=== PATIENT | female | born 1930 | race Caucasian/White ===

== ENCOUNTER 2018-05-17 14:04 | Emergency (ER) | payer MEDICARE, OTHER ==
[2018-05-17] MEDS: LIDOCAINE 1%/EPI (MDV) 50 ML INJ INJ (15:27)
[2018-05-17] MEDS: DIPHTH/TET/ACEL PERTUSS (ADULT) 0.5 ML VIAL IM* (17:49)
== END 2018-05-17 17:51 | disposition home or self-care (01) ==
LOC: E/R 14:04
DX: S02.2XXA Fracture of nasal bones, initial encounter for closed fracture (principal); S01.81XA Laceration without foreign body of other part of head, initial encounter; I10 Essential (primary) hypertension; W01.198A Fall on same level from slipping, tripping and stumbling with subsequent striking against other object, initial encounter; Y92.89 Other specified places as the place of occurrence of the external cause; Z96.651 Presence of right artificial knee joint
CPT/HCPCS: 70486; 99284-25

== ENCOUNTER 2018-06-06 13:20 | Inpatient (IN) | payer MEDICARE, OTHER ==
[2018-06-06 17:31] LABS: ADD MAN DIFF? NO
[2018-06-06 17:38] LABS: BASOPHIL # 0.1 10^3/ul (0.0-0.1); BASOPHILS % 1.3 % (0.0-2.0); EOSINOPHILS # 0.2 10^3/ul (0.0-0.5); EOSINOPHILS % 3.8 % (0.0-7.0); HEMATOCRIT 34.3 % (37.0-47.0); HEMOGLOBIN 10.1 g/dl (12.0-16.0); LYMPHOCYTES # 1.3 10^3/ul (0.8-2.9); LYMPHOCYTES % 23.4 % (15.0-51.0); MEAN CORPUSCULAR HEMOGLOBIN 29.2 pg (29.0-33.0); MEAN CORPUSCULAR HGB CONC 29.4 g/dl (32.0-37.0); MEAN CORPUSCULAR VOLUME 99.1 fl (82.0-101.0); MEAN PLATELET VOLUME 10.8 fl (7.4-10.4); MONOCYTE # 0.7 10^3/ul (0.3-0.9); MONOCYTES % 12.1 % (0.0-11.0); NEUTROPHIL # 3.3 10^3/ul (1.6-7.5); PLATELET COUNT 223 10^3/UL (140-415); RED BLOOD COUNT 3.46 10^6/ul (4.20-5.40)
[2018-06-06 17:38] LABS: WHITE BLOOD COUNT 5.6 10^3/ul (4.8-10.8)
[2018-06-06] MEDS: IBUPROFEN 600 MG TAB PO (17:39)
[2018-06-06 17:56] LABS: ANION GAP 13 (8-16)
[2018-06-06 17:59] LABS: BLOOD UREA NITROGEN 31 mg/dl (7-20); CALCIUM 9.6 mg/dl (8.4-10.2); CARBON DIOXIDE 23 mmol/L (21-31); CHLORIDE 112 mmol/L (97-110); CREATININE 1.17 mg/dl (0.44-1.00); GLUCOSE 90 mg/dl (70-220); POTASSIUM 5.1 mmol/L (3.5-5.1); SODIUM 143 mmol/L (135-144)
[2018-06-06] MEDS: morphine 10 MG INJ IM (19:06)
[2018-06-06] MEDS: LORAZEPAM 0.5 MG TAB PO (20:59)
[2018-06-06] MEDS: ONDANSETRON 4 MG INJ IV (20:59)
[2018-06-06] MEDS: morphine 4 MG/ML VIAL IV ×2 (20:59→21:17)
[2018-06-06] MEDS ORDERED: ACETAMINOPHEN 325 MG TAB PO (21:00)
[2018-06-06] MEDS ORDERED: morphine 2 MG INJ IV (23:00)
[2018-06-07] MEDS: PANTOPRAZOLE (EC) 40 MG TAB PO (08:12)
[2018-06-07] MEDS: FOLIC ACID 1 MG TAB PO (08:12)
[2018-06-07] MEDS: METOPROLOL 50 MG TAB PO ×2 (08:13→21:31)
[2018-06-07] MEDS: GABAPENTIN 100 MG CAP PO ×4 (08:13→21:00)
[2018-06-07] MEDS: ENALAPRIL 10 MG TAB PO (08:13)
[2018-06-07 10:08] LABS: ADD MAN DIFF? NO
[2018-06-07 10:12] LABS: BASOPHILS % 0.6 % (0.0-2.0); EOSINOPHILS # 0.1 10^3/ul (0.0-0.5); HEMATOCRIT 32.5 % (37.0-47.0); HEMOGLOBIN 9.5 g/dl (12.0-16.0); LYMPHOCYTES # 0.6 10^3/ul (0.8-2.9); MEAN CORPUSCULAR HEMOGLOBIN 29.3 pg (29.0-33.0); MEAN CORPUSCULAR HGB CONC 29.2 g/dl (32.0-37.0); MEAN CORPUSCULAR VOLUME 100.3 fl (82.0-101.0); MEAN PLATELET VOLUME 10.8 fl (7.4-10.4); MONOCYTE # 0.7 10^3/ul (0.3-0.9); MONOCYTES % 10.3 % (0.0-11.0); NEUTROPHIL # 5.5 10^3/ul (1.6-7.5); NEUTROPHILS % 78.7 % (39.0-77.0); PLATELET COUNT 204 10^3/UL (140-415); RED BLOOD COUNT 3.24 10^6/ul (4.20-5.40); RED CELL DISTRIBUTION WIDTH 15.8 % (11.5-14.5)
[2018-06-07 10:35] LABS: INR 1.01; PROTIME 13.4 Sec (11.9-14.9)
[2018-06-07 10:39] LABS: IRON 25 ug/dl (35-150)
[2018-06-07 10:42] LABS: ALANINE AMINOTRANSFERASE 20 IU/L (13-69); ALBUMIN 3.7 g/dl (3.3-4.9); ALBUMIN/GLOBULIN RATIO 1.27; ALKALINE PHOSPHATASE 37 IU/L (42-121); ANION GAP 10 (8-16); ASPARTATE AMINO TRANSFERASE 18 IU/L (15-46); BLOOD UREA NITROGEN 33 mg/dl (7-20); CALCIUM 9.4 mg/dl (8.4-10.2); CARBON DIOXIDE 27 mmol/L (21-31); CHLORIDE 113 mmol/L (97-110); CREATININE 1.18 mg/dl (0.44-1.00); GLUCOSE 124 mg/dl (70-220); MAGNESIUM 1.8 mg/dl (1.7-2.5); SODIUM 145 mmol/L (135-144); TOTAL PROTEIN 6.6 g/dl (6.1-8.1)
[2018-06-07 10:53] LABS: % IRON SATURATION 8 % SAT (22-52); TOTAL IRON BINDING CAPACITY 330 ug/dl (241-421)
[2018-06-07] MEDS: ACETAMINOPHEN 500 MG TAB PO (15:13)
[2018-06-07] MEDS: SOD FERRIC GLUC COMPLX 125 MG in SOD CHLORIDE 0.9% 100 ML IVPB (17:26)
[2018-06-07] MEDS: HYDROCODONE/APAP (7.5/325) TAB PO ×2 (17:47→22:44)
[2018-06-07] MEDS ORDERED: morphine LIQ (10 MG/5 ML) CUP PO (23:00)
[2018-06-08] MEDS: PANTOPRAZOLE (EC) 40 MG TAB PO (08:25)
[2018-06-08] MEDS: FOLIC ACID 1 MG TAB PO (08:25)
[2018-06-08] MEDS: HYDROCODONE/APAP (7.5/325) TAB PO ×3 (08:25→23:38)
[2018-06-08] MEDS: METOPROLOL 50 MG TAB PO ×2 (08:26→21:00)
[2018-06-08] MEDS: GABAPENTIN 100 MG CAP PO ×3 (08:26→21:00)
[2018-06-08] MEDS: ENALAPRIL 10 MG TAB PO (08:26)
[2018-06-08 11:51] LABS: ADD MAN DIFF? NO
[2018-06-08 11:53] LABS: BASOPHILS % 0.5 % (0.0-2.0); EOSINOPHILS # 0.2 10^3/ul (0.0-0.5); EOSINOPHILS % 2.9 % (0.0-7.0); HEMATOCRIT 33.1 % (37.0-47.0); HEMOGLOBIN 9.9 g/dl (12.0-16.0); LYMPHOCYTES # 0.6 10^3/ul (0.8-2.9); LYMPHOCYTES % 7.9 % (15.0-51.0); MEAN CORPUSCULAR HEMOGLOBIN 29.8 pg (29.0-33.0); MEAN CORPUSCULAR HGB CONC 29.9 g/dl (32.0-37.0); MEAN CORPUSCULAR VOLUME 99.7 fl (82.0-101.0); MEAN PLATELET VOLUME 11.4 fl (7.4-10.4); MONOCYTE # 0.7 10^3/ul (0.3-0.9); MONOCYTES % 8.8 % (0.0-11.0); NEUTROPHILS % 79.5 % (39.0-77.0); PLATELET COUNT 198 10^3/UL (140-415); RED BLOOD COUNT 3.32 10^6/ul (4.20-5.40); RED CELL DISTRIBUTION WIDTH 15.9 % (11.5-14.5)
[2018-06-08 11:53] LABS: WHITE BLOOD COUNT 7.6 10^3/ul (4.8-10.8)
[2018-06-08 15:38] LABS: IMMEDIATE SPIN CROSSMATCH 1 2
[2018-06-08 19:15] LABS: RETICULOCYTE COUNT # 0.094 X10^6 (0.020-0.110); RETICULOCYTE COUNT % 2.6 % (0.5-1.5)
[2018-06-08 19:15] LABS: RETICULOCYTE RBC 3.68
[2018-06-08 19:40] LABS: IRON 54 ug/dl (35-150)
[2018-06-08 19:42] LABS: URIC ACID 6.8 mg/dl (3.1-7.9)
[2018-06-08 19:42] LABS: LACTATE DEHYDROGENASE 478 IU/L (313-618)
[2018-06-08 19:51] LABS: % IRON SATURATION 18 % SAT (22-52); TOTAL IRON BINDING CAPACITY 301 ug/dl (241-421)
[2018-06-08 20:36] LABS: ERYTHROCYTE SEDIMENTATION RATE 11 mm/Hr (0-30)
[2018-06-08 20:49] LABS: FOLATE > 20.0 ng/ml (2.8-20.0)
[2018-06-08] MEDS: SOD FERRIC GLUC COMPLX 125 MG in SOD CHLORIDE 0.9% 100 ML IVPB (21:26)
[2018-06-09 07:14] LABS: ADD MAN DIFF? NO; BASOPHIL # 0.1 10^3/ul (0.0-0.1); BASOPHILS % 0.7 % (0.0-2.0); EOSINOPHILS # 0.2 10^3/ul (0.0-0.5); EOSINOPHILS % 3.2 % (0.0-7.0); HEMATOCRIT 35.7 % (37.0-47.0); HEMOGLOBIN 11.1 g/dl (12.0-16.0); LYMPHOCYTES # 0.9 10^3/ul (0.8-2.9); LYMPHOCYTES % 12.4 % (15.0-51.0); MEAN CORPUSCULAR HEMOGLOBIN 30.3 pg (29.0-33.0); MEAN CORPUSCULAR HGB CONC 31.1 g/dl (32.0-37.0); MEAN CORPUSCULAR VOLUME 97.5 fl (82.0-101.0); MEAN PLATELET VOLUME 11.9 fl (7.4-10.4); MONOCYTES % 14.2 % (0.0-11.0); NEUTROPHIL # 4.7 10^3/ul (1.6-7.5); NEUTROPHILS % 69.1 % (39.0-77.0); PLATELET COUNT 177 10^3/UL (140-415); RED BLOOD COUNT 3.66 10^6/ul (4.20-5.40); RED CELL DISTRIBUTION WIDTH 16.3 % (11.5-14.5)
[2018-06-09 07:14] LABS: WHITE BLOOD COUNT 6.9 10^3/ul (4.8-10.8)
[2018-06-09] MEDS: PANTOPRAZOLE (EC) 40 MG TAB PO (08:00)
[2018-06-09] MEDS: ENALAPRIL 10 MG TAB PO (09:00)
[2018-06-09] MEDS: FOLIC ACID 1 MG TAB PO (09:00)
[2018-06-09] MEDS: GABAPENTIN 100 MG CAP PO ×3 (09:00→21:15)
[2018-06-09] MEDS: METOPROLOL 50 MG TAB PO ×2 (09:00→21:00)
[2018-06-09] MEDS ORDERED: BACITRACIN 50000 UNITS INJ (12:41)
[2018-06-09] MEDS ORDERED: MIDAZOLAM 1 MG/ML 2 ML INJ (14:17)
[2018-06-09] MEDS ORDERED: morphine 2 MG INJ IV (14:30)
[2018-06-09] MEDS ORDERED: PHENYLephrine (100 MCG/ML) 5ML SYG (14:32)
[2018-06-09] MEDS: POLYMYXIN/BACITRACIN 1L IRRIG (15:06)
[2018-06-09] MEDS ORDERED: CEFAZOLIN 1 GM/50 ML (PMX) 50 ML IVPB (16:00)
[2018-06-09] MEDS ORDERED: PHENYLephrine 10 MG INJ (16:14)
[2018-06-09] MEDS ORDERED: LIDOCAINE 2% (SDV) 5 ML INJ (16:24)
[2018-06-09] MEDS ORDERED: ROCURONIUM 50 MG INJ (16:24)
[2018-06-09] MEDS ORDERED: ETOMIDATE 20 MG INJ (16:24)
[2018-06-09] MEDS ORDERED: NEOSTIGMINE 3 MG/3 ML SYRINGE (16:24)
[2018-06-09] MEDS ORDERED: ONDANSETRON 4 MG INJ (16:24)
[2018-06-09] MEDS ORDERED: GLYCOPYRROLATE 0.4 MG INJ (16:24)
[2018-06-09] MEDS ORDERED: CEFAZOLIN 1 GM INJ (16:32)
[2018-06-09] MEDS ORDERED: MEPERIDINE 25 MG INJ (16:43)
[2018-06-09] MEDS ORDERED: HYDROmorphONE 1 MG/5 ML IV SYRINGE IV ×2 (16:45→17:00)
[2018-06-09] MEDS: HYDROmorphONE 1 MG/5 ML IV SYRINGE IV ×2 (16:53→17:04)
[2018-06-09] MEDS ORDERED: FENTAnyl 50 MCG/ML VIAL IV (17:00)
[2018-06-09] MEDS ORDERED: DIPHENHYDRAMINE 50 MG INJ IV (17:00)
[2018-06-09] MEDS: SOD FERRIC GLUC COMPLX 125 MG in SOD CHLORIDE 0.9% 100 ML IVPB ×2 (17:00→17:53)
[2018-06-09] MEDS ORDERED: METOCLOPRAMIDE 10 MG INJ IV (17:00)
[2018-06-09] MEDS ORDERED: ONDANSETRON 4 MG INJ IV (17:00)
[2018-06-09] MEDS: MEPERIDINE 25 MG INJ IV (17:04)
[2018-06-09 17:08] LABS: ADD MAN DIFF? NO
[2018-06-09 17:10] LABS: WHITE BLOOD COUNT 14.5 10^3/ul (4.8-10.8)
[2018-06-09 17:10] LABS: ABNORMAL IP MESSAGE 1; BASOPHIL # 0.1 10^3/ul (0.0-0.1); BASOPHILS % 0.7 % (0.0-2.0); EOSINOPHILS # 0.2 10^3/ul (0.0-0.5); EOSINOPHILS % 1.3 % (0.0-7.0); HEMATOCRIT 41.4 % (37.0-47.0); HEMOGLOBIN 12.6 g/dl (12.0-16.0); LYMPHOCYTES # 1.6 10^3/ul (0.8-2.9); MEAN CORPUSCULAR HEMOGLOBIN 29.4 pg (29.0-33.0); MEAN CORPUSCULAR HGB CONC 30.4 g/dl (32.0-37.0); MEAN CORPUSCULAR VOLUME 96.7 fl (82.0-101.0); MEAN PLATELET VOLUME 11.4 fl (7.4-10.4); MONOCYTE # 1.7 10^3/ul (0.3-0.9); MONOCYTES % 11.4 % (0.0-11.0); NEUTROPHIL # 10.9 10^3/ul (1.6-7.5); NEUTROPHILS % 74.8 % (39.0-77.0); PLATELET COUNT 199 10^3/UL (140-415); RED BLOOD COUNT 4.28 10^6/ul (4.20-5.40); RED CELL DISTRIBUTION WIDTH 16.3 % (11.5-14.5)
[2018-06-09 17:16] LABS: POSITIVE DIFF @See below
[2018-06-09] MEDS: SOD CHLORIDE 0.9% 1,000 ML IV (17:52)
[2018-06-09] MEDS: HYDROCODONE/APAP (7.5/325) TAB PO (21:15)
[2018-06-10] MEDS: SOD CHLORIDE 0.9% 500 ML IV ×2 (02:28→04:02)
[2018-06-10] MEDS: SOD CHLORIDE 0.9% 1,000 ML IV ×4 (02:32→11:42)
[2018-06-10] MEDS: CEFAZOLIN 1 GM/50 ML (PMX) 50 ML IVPB ×2 (02:42→15:59)
[2018-06-10 05:55] LABS: ADD MAN DIFF? NO
[2018-06-10 06:06] LABS: WHITE BLOOD COUNT 8.8 10^3/ul (4.8-10.8)
[2018-06-10 06:06] LABS: BASOPHILS % 0.3 % (0.0-2.0); EOSINOPHILS % 0.2 % (0.0-7.0); HEMATOCRIT 32.2 % (37.0-47.0); HEMOGLOBIN 9.7 g/dl (12.0-16.0); LYMPHOCYTES # 0.7 10^3/ul (0.8-2.9); LYMPHOCYTES % 7.5 % (15.0-51.0); MEAN CORPUSCULAR HEMOGLOBIN 29.8 pg (29.0-33.0); MEAN CORPUSCULAR HGB CONC 30.1 g/dl (32.0-37.0); MEAN CORPUSCULAR VOLUME 99.1 fl (82.0-101.0); MEAN PLATELET VOLUME 11.7 fl (7.4-10.4); MONOCYTE # 1.2 10^3/ul (0.3-0.9); MONOCYTES % 14.1 % (0.0-11.0); NEUTROPHIL # 6.8 10^3/ul (1.6-7.5); NEUTROPHILS % 77.6 % (39.0-77.0); PLATELET COUNT 154 10^3/UL (140-415); RED BLOOD COUNT 3.25 10^6/ul (4.20-5.40)
[2018-06-10 06:31] LABS: ANION GAP 11 (8-16); BLOOD UREA NITROGEN 17 mg/dl (7-20); CALCIUM 7.9 mg/dl (8.4-10.2); CARBON DIOXIDE 27 mmol/L (21-31); CHLORIDE 109 mmol/L (97-110); CREATININE 1.13 mg/dl (0.44-1.00); GLUCOSE 114 mg/dl (70-220); SODIUM 142 mmol/L (135-144)
[2018-06-10] MEDS: GABAPENTIN 100 MG CAP PO ×4 (09:00→20:31)
[2018-06-10] MEDS ORDERED: ENOXAPARIN 40 MG/0.4 ML SYG SC (09:00)
[2018-06-10] MEDS: HYDROCODONE/APAP (5/325) TAB PO (09:10)
[2018-06-10] MEDS: METOPROLOL 25 MG TAB PO ×2 (09:18→20:28)
[2018-06-10] MEDS: FOLIC ACID 1 MG TAB PO (09:20)
[2018-06-10] MEDS: PANTOPRAZOLE (EC) 40 MG TAB PO (09:20)
[2018-06-10] MEDS: ENOXAPARIN 30 MG/0.3 ML SYG SC (09:24)
[2018-06-10 18:37] LABS: ADD MAN DIFF? NO
[2018-06-10 18:39] LABS: WHITE BLOOD COUNT 9.7 10^3/ul (4.8-10.8)
[2018-06-10 18:39] LABS: BASOPHILS % 0.3 % (0.0-2.0); EOSINOPHILS % 0.4 % (0.0-7.0); HEMATOCRIT 29.7 % (37.0-47.0); LYMPHOCYTES # 0.6 10^3/ul (0.8-2.9); LYMPHOCYTES % 6.2 % (15.0-51.0); MEAN CORPUSCULAR HEMOGLOBIN 29.8 pg (29.0-33.0); MEAN CORPUSCULAR HGB CONC 30.3 g/dl (32.0-37.0); MEAN CORPUSCULAR VOLUME 98.3 fl (82.0-101.0); MONOCYTE # 1.2 10^3/ul (0.3-0.9); NEUTROPHIL # 7.8 10^3/ul (1.6-7.5); NEUTROPHILS % 80.6 % (39.0-77.0); PLATELET COUNT 149 10^3/UL (140-415); RED BLOOD COUNT 3.02 10^6/ul (4.20-5.40); RED CELL DISTRIBUTION WIDTH 16.1 % (11.5-14.5)
[2018-06-10 19:09] LABS: D-DIMER 3125.64 ng/ml (<460)
[2018-06-10 19:11] LABS: ALANINE AMINOTRANSFERASE 26 IU/L (13-69); ALBUMIN 2.5 g/dl (3.3-4.9); ALBUMIN/GLOBULIN RATIO 0.89; ALKALINE PHOSPHATASE 38 IU/L (42-121); ANION GAP 12 (8-16); ASPARTATE AMINO TRANSFERASE 34 IU/L (15-46); BILIRUBIN,INDIRECT 0.4 mg/dl (0-1.1); BILIRUBIN,TOTAL 0.4 mg/dl (0.2-1.3); BLOOD UREA NITROGEN 12 mg/dl (7-20); CALCIUM 7.4 mg/dl (8.4-10.2); CARBON DIOXIDE 25 mmol/L (21-31); CHLORIDE 108 mmol/L (97-110); CREATININE 0.97 mg/dl (0.44-1.00); GLUCOSE 134 mg/dl (70-220); POTASSIUM 4.7 mmol/L (3.5-5.1); SODIUM 140 mmol/L (135-144); TOTAL PROTEIN 5.3 g/dl (6.1-8.1)
[2018-06-10] MEDS: morphine 2 MG INJ IV (20:29)
[2018-06-10] MEDS: HYDROCODONE/APAP (7.5/325) TAB PO (20:37)
[2018-06-11] MEDS: SOD CHLORIDE 0.9% 1,000 ML IV ×4 (01:04→20:44)
[2018-06-11 06:07] LABS: ADD MAN DIFF? NO
[2018-06-11 06:10] LABS: BASOPHILS % 0.4 % (0.0-2.0); EOSINOPHILS # 0.1 10^3/ul (0.0-0.5); EOSINOPHILS % 0.9 % (0.0-7.0); HEMATOCRIT 27.9 % (37.0-47.0); HEMOGLOBIN 8.4 g/dl (12.0-16.0); LYMPHOCYTES # 0.7 10^3/ul (0.8-2.9); LYMPHOCYTES % 7.7 % (15.0-51.0); MEAN CORPUSCULAR HEMOGLOBIN 29.5 pg (29.0-33.0); MEAN CORPUSCULAR HGB CONC 30.1 g/dl (32.0-37.0); MEAN CORPUSCULAR VOLUME 97.9 fl (82.0-101.0); MEAN PLATELET VOLUME 11.4 fl (7.4-10.4); MONOCYTE # 1.2 10^3/ul (0.3-0.9); MONOCYTES % 13.4 % (0.0-11.0); NEUTROPHIL # 7.1 10^3/ul (1.6-7.5); NEUTROPHILS % 77.1 % (39.0-77.0); PLATELET COUNT 145 10^3/UL (140-415); RED BLOOD COUNT 2.85 10^6/ul (4.20-5.40); RED CELL DISTRIBUTION WIDTH 15.8 % (11.5-14.5)
[2018-06-11 06:10] LABS: WHITE BLOOD COUNT 9.2 10^3/ul (4.8-10.8)
[2018-06-11] MEDS: METOPROLOL 25 MG TAB PO ×2 (08:38→20:41)
[2018-06-11] MEDS: HYDROCODONE/APAP (5/325) TAB PO (08:44)
[2018-06-11] MEDS: PANTOPRAZOLE (EC) 40 MG TAB PO (08:44)
[2018-06-11] MEDS: FOLIC ACID 1 MG TAB PO (08:44)
[2018-06-11] MEDS: BRIMONIDINE 0.2%-TIMOLOL 0.5% 5ML OPH BOTH EYES (08:50)
[2018-06-11] MEDS: LATANOPROST 0.005% 2.5 ML OPH BOTH EYES (08:51)
[2018-06-11] MEDS: GABAPENTIN 100 MG CAP PO ×3 (08:52→20:40)
[2018-06-11] MEDS: ENOXAPARIN 30 MG/0.3 ML SYG SC (08:53)
[2018-06-11] MEDS: SOD CHLORIDE 0.9% 500 ML IV (08:55)
[2018-06-11 14:32] LABS: HAPTOGLOBIN 200 mg/dL (43-212)
[2018-06-11] MEDS: HYDROCODONE/APAP (7.5/325) TAB PO (20:42)
[2018-06-11] MEDS ORDERED: BRIMONIDINE 0.2%-TIMOLOL 0.5% 5ML OPH BOTH EYES (21:00)
[2018-06-12 06:27] LABS: ADD MAN DIFF? NO
[2018-06-12 06:32] LABS: ABNORMAL IP MESSAGE 1; BASOPHILS % 0.4 % (0.0-2.0); EOSINOPHILS # 0.3 10^3/ul (0.0-0.5); EOSINOPHILS % 3.1 % (0.0-7.0); HEMATOCRIT 24.9 % (37.0-47.0); HEMOGLOBIN 7.8 g/dl (12.0-16.0); LYMPHOCYTES # 0.6 10^3/ul (0.8-2.9); LYMPHOCYTES % 7.3 % (15.0-51.0); MEAN CORPUSCULAR HGB CONC 31.3 g/dl (32.0-37.0); MEAN CORPUSCULAR VOLUME 98.8 fl (82.0-101.0); MEAN PLATELET VOLUME 11.6 fl (7.4-10.4); MONOCYTES % 11.9 % (0.0-11.0); NEUTROPHIL # 6.1 10^3/ul (1.6-7.5); NEUTROPHILS % 76.7 % (39.0-77.0); PLATELET COUNT 142 10^3/UL (140-415); RED BLOOD COUNT 2.52 10^6/ul (4.20-5.40); RED CELL DISTRIBUTION WIDTH 15.5 % (11.5-14.5)
[2018-06-12 06:45] LABS: POSITIVE DIFF @See below
[2018-06-12] MEDS: PANTOPRAZOLE (EC) 40 MG TAB PO (08:12)
[2018-06-12] MEDS: FOLIC ACID 1 MG TAB PO (08:12)
[2018-06-12] MEDS: METOPROLOL 25 MG TAB PO ×2 (08:14→20:12)
[2018-06-12] MEDS: BRIMONIDINE 0.2%-TIMOLOL 0.5% 5ML OPH BOTH EYES (08:15)
[2018-06-12] MEDS: HYDROCODONE/APAP (7.5/325) TAB PO (08:17)
[2018-06-12] MEDS: ENOXAPARIN 30 MG/0.3 ML SYG SC (08:37)
[2018-06-12] MEDS: GABAPENTIN 100 MG CAP PO ×3 (09:00→20:10)
[2018-06-12] MEDS: LATANOPROST 0.005% 2.5 ML OPH BOTH EYES (09:00)
[2018-06-12] MEDS: SOD CHLORIDE 0.9% 1,000 ML IV ×2 (11:00→16:00)
[2018-06-12] MEDS: HYDROCODONE/APAP (5/325) TAB PO (20:11)
[2018-06-12 20:13] LABS: ERYTHROPOIETIN 17.6 mIU/mL (2.6-18.5)
[2018-06-12 21:15] LABS: IMMEDIATE SPIN CROSSMATCH 1 1
[2018-06-13] MEDS: SOD CHLORIDE 0.9% 1,000 ML IV (03:10)
[2018-06-13 05:38] LABS: ADD MAN DIFF? NO
[2018-06-13 05:46] LABS: BASOPHILS % 0.6 % (0.0-2.0); EOSINOPHILS # 0.3 10^3/ul (0.0-0.5); EOSINOPHILS % 4.7 % (0.0-7.0); HEMOGLOBIN 8.8 g/dl (12.0-16.0); LYMPHOCYTES # 0.8 10^3/ul (0.8-2.9); LYMPHOCYTES % 11.7 % (15.0-51.0); MEAN CORPUSCULAR HEMOGLOBIN 28.9 pg (29.0-33.0); MEAN CORPUSCULAR HGB CONC 30.3 g/dl (32.0-37.0); MEAN CORPUSCULAR VOLUME 95.4 fl (82.0-101.0); MONOCYTE # 0.8 10^3/ul (0.3-0.9); MONOCYTES % 11.8 % (0.0-11.0); NEUTROPHIL # 4.6 10^3/ul (1.6-7.5); NEUTROPHILS % 70.7 % (39.0-77.0); PLATELET COUNT 148 10^3/UL (140-415); RED BLOOD COUNT 3.04 10^6/ul (4.20-5.40); RED CELL DISTRIBUTION WIDTH 18.6 % (11.5-14.5)
[2018-06-13 05:46] LABS: WHITE BLOOD COUNT 6.4 10^3/ul (4.8-10.8)
[2018-06-13] MEDS: FOLIC ACID 1 MG TAB PO (08:04)
[2018-06-13] MEDS: METOPROLOL 25 MG TAB PO ×2 (08:04→20:42)
[2018-06-13] MEDS: PANTOPRAZOLE (EC) 40 MG TAB PO (08:05)
[2018-06-13] MEDS: GABAPENTIN 100 MG CAP PO ×3 (08:05→20:34)
[2018-06-13] MEDS: BRIMONIDINE 0.2%-TIMOLOL 0.5% 5ML OPH BOTH EYES (08:06)
[2018-06-13] MEDS: LATANOPROST 0.005% 2.5 ML OPH BOTH EYES (08:06)
[2018-06-13] MEDS: ENOXAPARIN 30 MG/0.3 ML SYG SC (08:08)
[2018-06-13] MEDS: HYDROCODONE/APAP (7.5/325) TAB PO (08:09)
[2018-06-13 12:26] LABS: OCCULT BLOOD STOOL NEGATIVE (NEGATIVE)
[2018-06-13] MEDS: HYDROCODONE/APAP (5/325) TAB PO (20:34)
== END 2018-06-13 22:30 | DRG 470 ==
LOC: E/R 13:20 → MS2 20:53
PROC: 0SRS0JZ Replacement of Left Hip Joint, Femoral Surface with Synthetic Substitute, Open Approach (ICD-10-PCS; principal; 2018-06-09 10:00)
DX: S72.042A Displaced fracture of base of neck of left femur, initial encounter for closed fracture (principal); S02.2XXA Fracture of nasal bones, initial encounter for closed fracture; I10 Essential (primary) hypertension; Z96.651 Presence of right artificial knee joint; Z91.81 History of falling; F32.9 Major depressive disorder, single episode, unspecified; D63.8 Anemia in other chronic diseases classified elsewhere; M81.0 Age-related osteoporosis without current pathological fracture; K21.9 Gastro-esophageal reflux disease without esophagitis; K59.09 Other constipation; R32 Unspecified urinary incontinence; K44.9 Diaphragmatic hernia without obstruction or gangrene
CPT/HCPCS: 36430; 72131; 72170; 72192; 73500; 73510; 73550; 80048; 80053; 82270; 82306; 82607; 82668; 82728; 82746; 83010; 83540; 83615; 83735; 84443; 84560; 85025; 85045; 85378; 85610; 85651; 86850; 86900; 86901; 86920; 88304; 88311; 93005; 93306; 93880; 93971; 96372; 97110; 97163; 97530; 99285-25

== ENCOUNTER 2018-06-13 22:53 | Inpatient (IN) | payer MEDICARE, OTHER ==
[2018-06-14] MEDS ORDERED: BISACODYL 10 MG SUPP PR (00:30)
[2018-06-14] MEDS ORDERED: PENDING SANTYL ORDER FOR WOUND CARE XX (00:30)
[2018-06-14] MEDS ORDERED: morphine LIQ (10 MG/5 ML) CUP PO (01:00)
[2018-06-14] MEDS ORDERED: morphine 2 MG INJ IV ×2 (01:00)
[2018-06-14 01:14] LABS: ADD UMIC YES; UR ASCORBIC ACID NEGATIVE (NEGATIVE); UR BACTERIA FEW /HPF (NONE SEEN); UR BILIRUBIN (Dip) NEGATIVE (NEGATIVE); UR BLOOD (Dip) 1+ mg/dL (NEGATIVE); UR CLARITY SLIGHTLY CLOUDY (CLEAR); UR COLOR YELLOW (YELLOW); UR GLUCOSE (Dip) NEGATIVE (NEGATIVE); UR KETONES (Dip) NEGATIVE (NEGATIVE); UR LEUKOCYTE ESTERASE (Dip) 3+ Leu/ul (NEGATIVE); UR NITRITE (Dip) NEGATIVE (NEGATIVE); UR RBC 2 /HPF (0-5); UR SPECIFIC GRAVITY (Dip) 1.015 (1.003-1.030); UR SQUAMOUS EPITHELIAL CELL FEW /HPF (FEW); UR TOTAL PROTEIN (Dip) NEGATIVE (NEGATIVE); UR UROBILINOGEN (Dip) NEGATIVE (NEGATIVE); UR WBC 6 /HPF (0-5)
[2018-06-14] MEDS: SOD CHLORIDE 0.9% 1,000 ML IV ×2 (01:27→18:08)
[2018-06-14 06:31] LABS: ADD MAN DIFF? NO
[2018-06-14] MEDS: PANTOPRAZOLE (EC) 40 MG TAB PO (06:31)
[2018-06-14 06:33] LABS: WHITE BLOOD COUNT 7.1 10^3/ul (4.8-10.8)
[2018-06-14 06:33] LABS: BASOPHIL # 0.1 10^3/ul (0.0-0.1); BASOPHILS % 0.8 % (0.0-2.0); EOSINOPHILS # 0.4 10^3/ul (0.0-0.5); EOSINOPHILS % 6.1 % (0.0-7.0); HEMATOCRIT 31.9 % (37.0-47.0); HEMOGLOBIN 9.5 g/dl (12.0-16.0); LYMPHOCYTES # 0.9 10^3/ul (0.8-2.9); MEAN CORPUSCULAR HEMOGLOBIN 28.3 pg (29.0-33.0); MEAN CORPUSCULAR HGB CONC 29.8 g/dl (32.0-37.0); MEAN CORPUSCULAR VOLUME 94.9 fl (82.0-101.0); MEAN PLATELET VOLUME 10.4 fl (7.4-10.4); MONOCYTE # 0.8 10^3/ul (0.3-0.9); MONOCYTES % 11.7 % (0.0-11.0); NEUTROPHIL # 4.8 10^3/ul (1.6-7.5); NEUTROPHILS % 68.4 % (39.0-77.0); PLATELET COUNT 173 10^3/UL (140-415); RED BLOOD COUNT 3.36 10^6/ul (4.20-5.40); RED CELL DISTRIBUTION WIDTH 18.3 % (11.5-14.5)
[2018-06-14 07:04] LABS: ALANINE AMINOTRANSFERASE 26 IU/L (13-69); ALBUMIN 2.6 g/dl (3.3-4.9); ALKALINE PHOSPHATASE 48 IU/L (42-121); ANION GAP 6 (8-16); ASPARTATE AMINO TRANSFERASE 33 IU/L (15-46); BILIRUBIN,INDIRECT 0.4 mg/dl (0-1.1); BILIRUBIN,TOTAL 0.4 mg/dl (0.2-1.3); BLOOD UREA NITROGEN 8 mg/dl (7-20); CALCIUM 8.5 mg/dl (8.4-10.2); CARBON DIOXIDE 30 mmol/L (21-31); CHLORIDE 113 mmol/L (97-110); CREATININE 0.71 mg/dl (0.44-1.00); GLUCOSE 95 mg/dl (70-220); POTASSIUM 4.1 mmol/L (3.5-5.1); SODIUM 145 mmol/L (135-144); TOTAL PROTEIN 5.2 g/dl (6.1-8.1)
[2018-06-14] MEDS: HYDROCODONE/APAP (7.5/325) TAB PO ×2 (08:06→15:09)
[2018-06-14] MEDS: LATANOPROST 0.005% 2.5 ML OPH BOTH EYES ×2 (09:00→09:50)
[2018-06-14] MEDS: FOLIC ACID 1 MG TAB PO (09:50)
[2018-06-14] MEDS: GABAPENTIN 100 MG CAP PO ×3 (09:50→22:06)
[2018-06-14] MEDS: BRIMONIDINE 0.2%-TIMOLOL 0.5% 5ML OPH BOTH EYES (09:50)
[2018-06-14] MEDS: METOPROLOL 25 MG TAB PO ×2 (09:51→22:07)
[2018-06-14] MEDS: DOCUSATE SODIUM 100 MG CAP PO ×2 (09:51→21:00)
[2018-06-14] MEDS: ENOXAPARIN 30 MG/0.3 ML SYG SC (09:52)
[2018-06-14] MEDS: SENNA TAB PO (21:00)
[2018-06-15] MEDS: PANTOPRAZOLE (EC) 40 MG TAB PO (07:36)
[2018-06-15] MEDS: HYDROCODONE/APAP (7.5/325) TAB PO (08:34)
[2018-06-15] MEDS: BRIMONIDINE 0.2%-TIMOLOL 0.5% 5ML OPH BOTH EYES (08:51)
[2018-06-15] MEDS: DOCUSATE SODIUM 100 MG CAP PO ×2 (08:51→21:00)
[2018-06-15] MEDS: GABAPENTIN 100 MG CAP PO ×3 (08:51→20:46)
[2018-06-15] MEDS: LATANOPROST 0.005% 2.5 ML OPH BOTH EYES (08:51)
[2018-06-15] MEDS: FOLIC ACID 1 MG TAB PO (08:52)
[2018-06-15] MEDS: METOPROLOL 25 MG TAB PO ×2 (08:52→21:03)
[2018-06-15] MEDS: LACTULOSE 30ML CUP PO (08:53)
[2018-06-15] MEDS: ENOXAPARIN 30 MG/0.3 ML SYG SC (09:04)
[2018-06-15] MEDS: SOD CHLORIDE 0.9% 1,000 ML IV ×2 (10:20→18:26)
[2018-06-15] MEDS ORDERED: PATIENT'S OWN MEDICATION BOTH EYES (20:30)
[2018-06-15] MEDS ORDERED: ONDANSETRON 4 MG INJ IV (20:30)
[2018-06-15] MEDS: ACETAMINOPHEN 500 MG TAB PO (20:46)
[2018-06-15] MEDS: SENNA TAB PO (21:00)
[2018-06-15] MEDS: LEVOFLOXACIN 500MG/D5W (PMX) 100 ML IVPB (21:28)
[2018-06-16] MEDS: PANTOPRAZOLE (EC) 40 MG TAB PO (06:35)
[2018-06-16] MEDS: GABAPENTIN 100 MG CAP PO ×3 (08:35→21:54)
[2018-06-16] MEDS: DOCUSATE SODIUM 100 MG CAP PO ×2 (08:35→21:00)
[2018-06-16] MEDS: BRIMONIDINE 0.2%-TIMOLOL 0.5% 5ML OPH BOTH EYES (08:35)
[2018-06-16] MEDS: FOLIC ACID 1 MG TAB PO (08:35)
[2018-06-16] MEDS: METOPROLOL 25 MG TAB PO ×2 (08:36→21:58)
[2018-06-16] MEDS: ENOXAPARIN 30 MG/0.3 ML SYG SC (08:37)
[2018-06-16] MEDS: LATANOPROST 0.005% 2.5 ML OPH BOTH EYES (09:00)
[2018-06-16] MEDS: BALSAM PERU/CASTOR OIL 60 GM TUBE TOP ×2 (13:05→21:53)
[2018-06-16] MEDS: ALBUTEROL/IPRATROPIUM (NEB) 3 ML AMP HHN (19:00)
[2018-06-16] MEDS: LEVOFLOXACIN 500MG/D5W (PMX) 100 ML IVPB (20:57)
[2018-06-16] MEDS: SENNA TAB PO (21:54)
[2018-06-16] MEDS: FUROSEMIDE 20 MG INJ IV (21:58)
[2018-06-17] MEDS: HYDROCODONE/APAP (5/325) TAB PO ×2 (00:45→13:50)
[2018-06-17] MEDS: PANTOPRAZOLE (EC) 40 MG TAB PO (06:36)
[2018-06-17] MEDS: ALBUTEROL/IPRATROPIUM (NEB) 3 ML AMP HHN ×2 (08:00→15:31)
[2018-06-17] MEDS: LATANOPROST 0.005% 2.5 ML OPH BOTH EYES (09:00)
[2018-06-17] MEDS: FUROSEMIDE 20 MG INJ IV (09:00)
[2018-06-17] MEDS: BRIMONIDINE 0.2%-TIMOLOL 0.5% 5ML OPH BOTH EYES (09:47)
[2018-06-17] MEDS: DOCUSATE SODIUM 100 MG CAP PO ×2 (09:49→21:00)
[2018-06-17] MEDS: METOPROLOL 25 MG TAB PO ×2 (09:49→21:20)
[2018-06-17] MEDS: FOLIC ACID 1 MG TAB PO (09:49)
[2018-06-17] MEDS: GABAPENTIN 100 MG CAP PO ×3 (09:49→21:19)
[2018-06-17] MEDS: BALSAM PERU/CASTOR OIL 60 GM TUBE TOP ×2 (09:50→21:32)
[2018-06-17] MEDS: ENOXAPARIN 30 MG/0.3 ML SYG SC (09:51)
[2018-06-17] MEDS: SENNA TAB PO (21:00)
[2018-06-17] MEDS: OPTH BOTH EYES (21:20)
[2018-06-17] MEDS: BIMATOPROST 0.01% BOTH EYES (21:20)
[2018-06-17] MEDS: ACETAMINOPHEN 500 MG TAB PO (21:35)
[2018-06-18 04:28] LABS: ADD UMIC YES; UR ASCORBIC ACID NEGATIVE (NEGATIVE); UR BACTERIA FEW /HPF (NONE SEEN); UR BILIRUBIN (Dip) NEGATIVE (NEGATIVE); UR BLOOD (Dip) 1+ mg/dL (NEGATIVE); UR CLARITY SLIGHTLY CLOUDY (CLEAR); UR COLOR YELLOW (YELLOW); UR GLUCOSE (Dip) NEGATIVE (NEGATIVE); UR KETONES (Dip) NEGATIVE (NEGATIVE); UR LEUKOCYTE ESTERASE (Dip) 3+ Leu/ul (NEGATIVE); UR NITRITE (Dip) NEGATIVE (NEGATIVE); UR RBC 6 /HPF (0-5); UR SPECIFIC GRAVITY (Dip) 1.012 (1.003-1.030); UR SQUAMOUS EPITHELIAL CELL FEW /HPF (FEW); UR TOTAL PROTEIN (Dip) NEGATIVE (NEGATIVE); UR UROBILINOGEN (Dip) NEGATIVE (NEGATIVE); UR WBC 28 /HPF (0-5)
[2018-06-18] MEDS: PANTOPRAZOLE (EC) 40 MG TAB PO (06:37)
[2018-06-18 07:26] LABS: ADD MAN DIFF? NO
[2018-06-18 07:37] LABS: BASOPHIL # 0.1 10^3/ul (0.0-0.1); BASOPHILS % 0.7 % (0.0-2.0); EOSINOPHILS # 0.2 10^3/ul (0.0-0.5); EOSINOPHILS % 3.3 % (0.0-7.0); HEMATOCRIT 30.7 % (37.0-47.0); HEMOGLOBIN 9.2 g/dl (12.0-16.0); LYMPHOCYTES # 0.8 10^3/ul (0.8-2.9); LYMPHOCYTES % 11.9 % (15.0-51.0); MEAN CORPUSCULAR HEMOGLOBIN 28.2 pg (29.0-33.0); MEAN CORPUSCULAR VOLUME 94.2 fl (82.0-101.0); MEAN PLATELET VOLUME 10.7 fl (7.4-10.4); MONOCYTE # 0.8 10^3/ul (0.3-0.9); MONOCYTES % 11.6 % (0.0-11.0); NEUTROPHIL # 4.8 10^3/ul (1.6-7.5); PLATELET COUNT 266 10^3/UL (140-415); RED BLOOD COUNT 3.26 10^6/ul (4.20-5.40); RED CELL DISTRIBUTION WIDTH 17.3 % (11.5-14.5)
[2018-06-18 07:37] LABS: WHITE BLOOD COUNT 6.9 10^3/ul (4.8-10.8)
[2018-06-18 07:51] LABS: ALANINE AMINOTRANSFERASE 24 IU/L (13-69); ALBUMIN 2.6 g/dl (3.3-4.9); ALBUMIN/GLOBULIN RATIO 0.92; ALKALINE PHOSPHATASE 41 IU/L (42-121); ANION GAP 7 (8-16); ASPARTATE AMINO TRANSFERASE 28 IU/L (15-46); BILIRUBIN,INDIRECT 0.4 mg/dl (0-1.1); BILIRUBIN,TOTAL 0.4 mg/dl (0.2-1.3); BLOOD UREA NITROGEN 8 mg/dl (7-20); CALCIUM 8.4 mg/dl (8.4-10.2); CARBON DIOXIDE 36 mmol/L (21-31); CHLORIDE 103 mmol/L (97-110); CREATININE 0.73 mg/dl (0.44-1.00); GLUCOSE 99 mg/dl (70-220); MAGNESIUM 1.1 mg/dl (1.7-2.5); POTASSIUM 3.4 mmol/L (3.5-5.1); SODIUM 143 mmol/L (135-144); TOTAL PROTEIN 5.4 g/dl (6.1-8.1)
[2018-06-18] MEDS: ALBUTEROL/IPRATROPIUM (NEB) 3 ML AMP HHN ×2 (07:51→16:00)
[2018-06-18] MEDS: LATANOPROST 0.005% 2.5 ML OPH BOTH EYES (09:00)
[2018-06-18] MEDS ORDERED: FUROSEMIDE 20 MG INJ IV (09:00)
[2018-06-18] MEDS: FUROSEMIDE 20 MG TAB PO ×2 (10:00→14:09)
[2018-06-18] MEDS: METOPROLOL 25 MG TAB PO ×2 (10:12→20:30)
[2018-06-18] MEDS: BRIMONIDINE 0.2%-TIMOLOL 0.5% 5ML OPH BOTH EYES (10:12)
[2018-06-18] MEDS: FOLIC ACID 1 MG TAB PO (10:13)
[2018-06-18] MEDS: GABAPENTIN 100 MG CAP PO ×3 (10:13→20:29)
[2018-06-18] MEDS: DOCUSATE SODIUM 100 MG CAP PO ×2 (10:13→20:30)
[2018-06-18] MEDS: ENOXAPARIN 30 MG/0.3 ML SYG SC (10:14)
[2018-06-18] MEDS: HYDROCODONE/APAP (5/325) TAB PO ×2 (10:18→14:13)
[2018-06-18] MEDS: BALSAM PERU/CASTOR OIL 60 GM TUBE TOP ×2 (10:24→20:30)
[2018-06-18] MEDS: SENNA TAB PO (20:30)
[2018-06-18] MEDS: OPTH BOTH EYES (20:31)
[2018-06-18] MEDS: BIMATOPROST 0.01% BOTH EYES (20:31)
[2018-06-19] MEDS: PANTOPRAZOLE (EC) 40 MG TAB PO (05:16)
[2018-06-19] MEDS: ALBUTEROL/IPRATROPIUM (NEB) 3 ML AMP HHN ×2 (08:41→15:04)
[2018-06-19] MEDS: LATANOPROST 0.005% 2.5 ML OPH BOTH EYES (09:00)
[2018-06-19] MEDS: METOPROLOL 25 MG TAB PO ×2 (09:33→21:00)
[2018-06-19] MEDS: FOLIC ACID 1 MG TAB PO (09:33)
[2018-06-19] MEDS: BALSAM PERU/CASTOR OIL 60 GM TUBE TOP ×2 (09:33→21:02)
[2018-06-19] MEDS: GABAPENTIN 100 MG CAP PO ×3 (09:33→20:59)
[2018-06-19] MEDS: DOCUSATE SODIUM 100 MG CAP PO ×2 (09:33→20:59)
[2018-06-19] MEDS: ENOXAPARIN 30 MG/0.3 ML SYG SC (09:35)
[2018-06-19] MEDS: HYDROCODONE/APAP (5/325) TAB PO (09:38)
[2018-06-19] MEDS: BRIMONIDINE 0.2%-TIMOLOL 0.5% 5ML OPH BOTH EYES (09:38)
[2018-06-19] MEDS: ACETAMINOPHEN 500 MG TAB PO (12:36)
[2018-06-19] MEDS: BIMATOPROST 0.01% BOTH EYES (20:59)
[2018-06-19] MEDS: SENNA TAB PO (20:59)
[2018-06-19] MEDS: OPTH BOTH EYES (20:59)
[2018-06-20] MEDS: PANTOPRAZOLE (EC) 40 MG TAB PO (07:23)
[2018-06-20] MEDS: ALBUTEROL/IPRATROPIUM (NEB) 3 ML AMP HHN ×2 (07:46→15:59)
[2018-06-20] MEDS: ENOXAPARIN 30 MG/0.3 ML SYG SC (09:51)
[2018-06-20] MEDS: DOCUSATE SODIUM 100 MG CAP PO ×2 (09:51→21:12)
[2018-06-20] MEDS: LACTULOSE 30ML CUP PO (09:51)
[2018-06-20] MEDS: GABAPENTIN 100 MG CAP PO ×3 (09:51→21:12)
[2018-06-20] MEDS: LATANOPROST 0.005% 2.5 ML OPH BOTH EYES (09:51)
[2018-06-20] MEDS: BRIMONIDINE 0.2%-TIMOLOL 0.5% 5ML OPH BOTH EYES (09:51)
[2018-06-20] MEDS: METOPROLOL 25 MG TAB PO ×2 (09:52→21:12)
[2018-06-20] MEDS: FOLIC ACID 1 MG TAB PO (09:52)
[2018-06-20] MEDS: BALSAM PERU/CASTOR OIL 60 GM TUBE TOP ×2 (09:53→21:13)
[2018-06-20] MEDS: HYDROCODONE/APAP (5/325) TAB PO (10:08)
[2018-06-20] MEDS: ACETAMINOPHEN 500 MG TAB PO ×2 (13:05→18:09)
[2018-06-20] MEDS: LIDOCAINE 5% PATCH TD (14:02)
[2018-06-20] MEDS: FUROSEMIDE 20 MG TAB PO (18:50)
[2018-06-20] MEDS: SENNA TAB PO (21:12)
[2018-06-20] MEDS: DICLOFENAC SODIUM 1% GEL 100 GM TUBE TP (21:13)
[2018-06-20] MEDS: OPTH BOTH EYES (21:17)
[2018-06-20] MEDS: BIMATOPROST 0.01% BOTH EYES (21:17)
[2018-06-21] MEDS: PANTOPRAZOLE (EC) 40 MG TAB PO (07:18)
[2018-06-21] MEDS: ALBUTEROL/IPRATROPIUM (NEB) 3 ML AMP HHN ×2 (08:00→16:00)
[2018-06-21] MEDS: LATANOPROST 0.005% 2.5 ML OPH BOTH EYES (09:00)
[2018-06-21] MEDS: HYDROCODONE/APAP (5/325) TAB PO ×2 (09:09→16:32)
[2018-06-21] MEDS: FOLIC ACID 1 MG TAB PO (09:11)
[2018-06-21] MEDS: DOCUSATE SODIUM 100 MG CAP PO ×2 (09:11→21:17)
[2018-06-21] MEDS: FUROSEMIDE 20 MG TAB PO (09:11)
[2018-06-21] MEDS: METOPROLOL 25 MG TAB PO ×2 (09:12→21:19)
[2018-06-21] MEDS: GABAPENTIN 100 MG CAP PO ×3 (09:12→21:18)
[2018-06-21] MEDS: BRIMONIDINE 0.2%-TIMOLOL 0.5% 5ML OPH BOTH EYES (09:13)
[2018-06-21] MEDS: LIDOCAINE 5% PATCH TD (09:13)
[2018-06-21] MEDS: ENOXAPARIN 30 MG/0.3 ML SYG SC (09:14)
[2018-06-21] MEDS: DICLOFENAC SODIUM 1% GEL 100 GM TUBE TP ×4 (09:14→21:23)
[2018-06-21] MEDS: BALSAM PERU/CASTOR OIL 60 GM TUBE TOP ×2 (09:26→21:00)
[2018-06-21] MEDS: ACETAMINOPHEN 500 MG TAB PO (12:43)
[2018-06-21] MEDS: SENNA TAB PO (21:00)
[2018-06-21] MEDS: OPTH BOTH EYES (21:00)
[2018-06-21] MEDS: BIMATOPROST 0.01% BOTH EYES (21:00)
[2018-06-22] MEDS: ALBUTEROL/IPRATROPIUM (NEB) 3 ML AMP HHN ×2 (08:00→16:00)
[2018-06-22] MEDS: LATANOPROST 0.005% 2.5 ML OPH BOTH EYES (09:00)
[2018-06-22] MEDS: HYDROCODONE/APAP (5/325) TAB PO ×2 (09:11→21:35)
[2018-06-22] MEDS: GABAPENTIN 100 MG CAP PO ×3 (09:12→21:25)
[2018-06-22] MEDS: DOCUSATE SODIUM 100 MG CAP PO ×2 (09:12→21:25)
[2018-06-22] MEDS: FOLIC ACID 1 MG TAB PO (09:13)
[2018-06-22] MEDS: DICLOFENAC SODIUM 1% GEL 100 GM TUBE TP ×4 (09:14→21:52)
[2018-06-22] MEDS: LIDOCAINE 5% PATCH TD (09:14)
[2018-06-22] MEDS: BRIMONIDINE 0.2%-TIMOLOL 0.5% 5ML OPH BOTH EYES (09:15)
[2018-06-22] MEDS: BALSAM PERU/CASTOR OIL 60 GM TUBE TOP ×2 (09:15→21:52)
[2018-06-22] MEDS: PANTOPRAZOLE (EC) 40 MG TAB PO (09:15)
[2018-06-22] MEDS: ENOXAPARIN 30 MG/0.3 ML SYG SC (09:21)
[2018-06-22] MEDS: METOPROLOL 25 MG TAB PO ×2 (11:46→21:28)
[2018-06-22] MEDS: ACETAMINOPHEN 500 MG TAB PO (12:54)
[2018-06-22 18:25] LABS: ADD MAN DIFF? NO
[2018-06-22 18:28] LABS: BASOPHIL # 0.1 10^3/ul (0.0-0.1); BASOPHILS % 0.7 % (0.0-2.0); EOSINOPHILS # 0.1 10^3/ul (0.0-0.5); HEMATOCRIT 33.6 % (37.0-47.0); HEMOGLOBIN 10.2 g/dl (12.0-16.0); LYMPHOCYTES # 0.9 10^3/ul (0.8-2.9); LYMPHOCYTES % 8.8 % (15.0-51.0); MEAN CORPUSCULAR HEMOGLOBIN 28.7 pg (29.0-33.0); MEAN CORPUSCULAR HGB CONC 30.4 g/dl (32.0-37.0); MEAN CORPUSCULAR VOLUME 94.4 fl (82.0-101.0); MEAN PLATELET VOLUME 10.3 fl (7.4-10.4); NEUTROPHIL # 8.1 10^3/ul (1.6-7.5); PLATELET COUNT 359 10^3/UL (140-415); RED BLOOD COUNT 3.56 10^6/ul (4.20-5.40); RED CELL DISTRIBUTION WIDTH 16.5 % (11.5-14.5)
[2018-06-22 18:28] LABS: WHITE BLOOD COUNT 10.3 10^3/ul (4.8-10.8)
[2018-06-22 18:46] LABS: ANION GAP 8 (8-16); BLOOD UREA NITROGEN 11 mg/dl (7-20); CALCIUM 8.8 mg/dl (8.4-10.2); CARBON DIOXIDE 40 mmol/L (21-31); CHLORIDE 96 mmol/L (97-110); CREATININE 0.73 mg/dl (0.44-1.00); GLUCOSE 106 mg/dl (70-220); MAGNESIUM 1.4 mg/dl (1.7-2.5); POTASSIUM 3.7 mmol/L (3.5-5.1); SODIUM 140 mmol/L (135-144)
[2018-06-22] MEDS: SENNA TAB PO (21:25)
[2018-06-22] MEDS: POTASSIUM CHLORIDE (SR) 20 MEQ TAB PO (21:44)
[2018-06-22] MEDS: BIMATOPROST 0.01% BOTH EYES (22:13)
[2018-06-22] MEDS: OPTH BOTH EYES (22:13)
[2018-06-22] MEDS: MAGNESIUM SULFATE 4 GM/100 ML 100 ML IVPB (23:32)
[2018-06-23] MEDS: PANTOPRAZOLE (EC) 40 MG TAB PO (06:38)
[2018-06-23] MEDS: ALBUTEROL/IPRATROPIUM (NEB) 3 ML AMP HHN ×2 (08:00→16:00)
[2018-06-23] MEDS: DOCUSATE SODIUM 100 MG CAP PO ×2 (08:54→21:01)
[2018-06-23] MEDS: GABAPENTIN 100 MG CAP PO ×3 (08:54→21:02)
[2018-06-23] MEDS: BALSAM PERU/CASTOR OIL 60 GM TUBE TOP ×2 (08:54→21:02)
[2018-06-23] MEDS: FOLIC ACID 1 MG TAB PO (08:54)
[2018-06-23] MEDS: METOPROLOL 25 MG TAB PO ×2 (08:54→21:01)
[2018-06-23] MEDS: BRIMONIDINE 0.2%-TIMOLOL 0.5% 5ML OPH BOTH EYES (08:55)
[2018-06-23] MEDS: ENOXAPARIN 30 MG/0.3 ML SYG SC (08:55)
[2018-06-23] MEDS: DICLOFENAC SODIUM 1% GEL 100 GM TUBE TP ×4 (08:56→22:20)
[2018-06-23] MEDS: LIDOCAINE 5% PATCH TD (08:56)
[2018-06-23] MEDS: LATANOPROST 0.005% 2.5 ML OPH BOTH EYES (09:00)
[2018-06-23] MEDS: ACETAMINOPHEN 500 MG TAB PO (15:33)
[2018-06-23] MEDS: OPTH BOTH EYES (21:02)
[2018-06-23] MEDS: BIMATOPROST 0.01% BOTH EYES (21:02)
[2018-06-23] MEDS: SENNA TAB PO (21:02)
[2018-06-24] MEDS: ACETAMINOPHEN 500 MG TAB PO (01:54)
[2018-06-24] MEDS: PANTOPRAZOLE (EC) 40 MG TAB PO (06:27)
[2018-06-24 07:26] LABS: ADD MAN DIFF? NO
[2018-06-24 07:37] LABS: BASOPHIL # 0.1 10^3/ul (0.0-0.1); BASOPHILS % 0.6 % (0.0-2.0); EOSINOPHILS # 0.1 10^3/ul (0.0-0.5); EOSINOPHILS % 1.4 % (0.0-7.0); HEMATOCRIT 31.4 % (37.0-47.0); HEMOGLOBIN 9.6 g/dl (12.0-16.0); LYMPHOCYTES # 0.8 10^3/ul (0.8-2.9); LYMPHOCYTES % 10.3 % (15.0-51.0); MEAN CORPUSCULAR HEMOGLOBIN 29.2 pg (29.0-33.0); MEAN CORPUSCULAR HGB CONC 30.6 g/dl (32.0-37.0); MEAN CORPUSCULAR VOLUME 95.4 fl (82.0-101.0); MEAN PLATELET VOLUME 10.9 fl (7.4-10.4); MONOCYTE # 0.9 10^3/ul (0.3-0.9); MONOCYTES % 11.6 % (0.0-11.0); NEUTROPHILS % 75.5 % (39.0-77.0); PLATELET COUNT 375 10^3/UL (140-415); RED BLOOD COUNT 3.29 10^6/ul (4.20-5.40); RED CELL DISTRIBUTION WIDTH 16.6 % (11.5-14.5)
[2018-06-24 07:37] LABS: WHITE BLOOD COUNT 7.9 10^3/ul (4.8-10.8)
[2018-06-24 07:50] LABS: ANION GAP 7 (8-16); BLOOD UREA NITROGEN 13 mg/dl (7-20); CALCIUM 8.8 mg/dl (8.4-10.2); CARBON DIOXIDE 36 mmol/L (21-31); CHLORIDE 102 mmol/L (97-110); CREATININE 0.75 mg/dl (0.44-1.00); GLUCOSE 103 mg/dl (70-220); MAGNESIUM 2.2 mg/dl (1.7-2.5); POTASSIUM 4.2 mmol/L (3.5-5.1); SODIUM 141 mmol/L (135-144)
[2018-06-24] MEDS: ALBUTEROL/IPRATROPIUM (NEB) 3 ML AMP HHN ×2 (08:00→16:00)
[2018-06-24] MEDS: LATANOPROST 0.005% 2.5 ML OPH BOTH EYES (09:00)
[2018-06-24] MEDS: BRIMONIDINE 0.2%-TIMOLOL 0.5% 5ML OPH BOTH EYES (11:14)
[2018-06-24] MEDS: DOCUSATE SODIUM 100 MG CAP PO ×2 (11:15→21:00)
[2018-06-24] MEDS: FUROSEMIDE 40 MG TAB PO (11:15)
[2018-06-24] MEDS: FOLIC ACID 1 MG TAB PO (11:15)
[2018-06-24] MEDS: HYDROCODONE/APAP (5/325) TAB PO (11:16)
[2018-06-24] MEDS: GABAPENTIN 100 MG CAP PO ×3 (11:16→21:18)
[2018-06-24] MEDS: LIDOCAINE 5% PATCH TD (11:18)
[2018-06-24] MEDS: ENOXAPARIN 30 MG/0.3 ML SYG SC (11:18)
[2018-06-24] MEDS: DICLOFENAC SODIUM 1% GEL 100 GM TUBE TP ×4 (11:25→21:00)
[2018-06-24] MEDS: BALSAM PERU/CASTOR OIL 60 GM TUBE TOP ×2 (11:25→21:00)
[2018-06-24] MEDS: POTASSIUM CHLORIDE (SR) 20 MEQ TAB PO (12:47)
[2018-06-24] MEDS: METOPROLOL 25 MG TAB PO ×2 (12:48→21:18)
[2018-06-24] MEDS: BACLOFEN 10 MG TAB PO ×2 (15:38→21:18)
[2018-06-24] MEDS: SENNA TAB PO (21:00)
[2018-06-24] MEDS: OPTH BOTH EYES (21:17)
[2018-06-24] MEDS: BIMATOPROST 0.01% BOTH EYES (21:17)
[2018-06-25] MEDS: PANTOPRAZOLE (EC) 40 MG TAB PO (06:08)
[2018-06-25] MEDS: LATANOPROST 0.005% 2.5 ML OPH BOTH EYES (09:00)
[2018-06-25] MEDS: METOPROLOL 25 MG TAB PO ×2 (09:00→21:47)
[2018-06-25] MEDS: FUROSEMIDE 40 MG TAB PO (09:00)
[2018-06-25] MEDS: ALBUTEROL/IPRATROPIUM (NEB) 3 ML AMP HHN ×2 (09:00→15:38)
[2018-06-25] MEDS: POTASSIUM CHLORIDE (SR) 20 MEQ TAB PO (10:41)
[2018-06-25] MEDS: FOLIC ACID 1 MG TAB PO (10:41)
[2018-06-25] MEDS: GABAPENTIN 100 MG CAP PO ×3 (10:41→21:46)
[2018-06-25] MEDS: DOCUSATE SODIUM 100 MG CAP PO ×2 (10:41→21:47)
[2018-06-25] MEDS: BACLOFEN 10 MG TAB PO ×2 (10:42→21:47)
[2018-06-25] MEDS: BRIMONIDINE 0.2%-TIMOLOL 0.5% 5ML OPH BOTH EYES (10:42)
[2018-06-25] MEDS: ENOXAPARIN 30 MG/0.3 ML SYG SC (10:43)
[2018-06-25] MEDS: LIDOCAINE 5% PATCH TD (10:44)
[2018-06-25] MEDS: DICLOFENAC SODIUM 1% GEL 100 GM TUBE TP ×4 (10:44→21:49)
[2018-06-25] MEDS: BALSAM PERU/CASTOR OIL 60 GM TUBE TOP ×2 (10:45→21:50)
[2018-06-25] MEDS: ACETAMINOPHEN 500 MG TAB PO (11:24)
[2018-06-25] MEDS: SENNA TAB PO (21:00)
[2018-06-25] MEDS: OPTH BOTH EYES (22:31)
[2018-06-25] MEDS: BIMATOPROST 0.01% BOTH EYES (22:31)
[2018-06-26] MEDS: ACETAMINOPHEN 500 MG TAB PO ×2 (02:26→09:44)
[2018-06-26] MEDS: PANTOPRAZOLE (EC) 40 MG TAB PO (06:49)
[2018-06-26] MEDS: BUPIVACAINE 0.5% 30 ML VIAL INJ (08:44)
[2018-06-26] MEDS: BETAMET NA PHOS/AC(6 MG/ML) 5ML INJ INJ (08:44)
[2018-06-26] MEDS: ALBUTEROL/IPRATROPIUM (NEB) 3 ML AMP HHN ×2 (09:00→16:38)
[2018-06-26] MEDS: DICLOFENAC SODIUM 1% GEL 100 GM TUBE TP ×4 (09:41→21:47)
[2018-06-26] MEDS: BALSAM PERU/CASTOR OIL 60 GM TUBE TOP ×2 (09:41→21:46)
[2018-06-26] MEDS: LIDOCAINE 5% PATCH TD (09:42)
[2018-06-26] MEDS: FOLIC ACID 1 MG TAB PO (09:43)
[2018-06-26] MEDS: FUROSEMIDE 40 MG TAB PO (09:43)
[2018-06-26] MEDS: POTASSIUM CHLORIDE (SR) 20 MEQ TAB PO (09:43)
[2018-06-26] MEDS: BACLOFEN 10 MG TAB PO ×2 (09:43→21:45)
[2018-06-26] MEDS: ENOXAPARIN 30 MG/0.3 ML SYG SC (09:43)
[2018-06-26] MEDS: BRIMONIDINE 0.2%-TIMOLOL 0.5% 5ML OPH BOTH EYES (09:43)
[2018-06-26] MEDS: LATANOPROST 0.005% 2.5 ML OPH BOTH EYES (09:44)
[2018-06-26] MEDS: DOCUSATE SODIUM 100 MG CAP PO ×2 (09:44→21:45)
[2018-06-26] MEDS: METOPROLOL 25 MG TAB PO ×2 (09:44→21:46)
[2018-06-26] MEDS: GABAPENTIN 100 MG CAP PO ×3 (09:44→21:45)
[2018-06-26 11:11] LABS: ANION GAP 9 (8-16); BLOOD UREA NITROGEN 13 mg/dl (7-20); CALCIUM 9.7 mg/dl (8.4-10.2); CARBON DIOXIDE 34 mmol/L (21-31); CHLORIDE 102 mmol/L (97-110); CREATININE 0.83 mg/dl (0.44-1.00); GLUCOSE 118 mg/dl (70-220); MAGNESIUM 1.9 mg/dl (1.7-2.5); SODIUM 140 mmol/L (135-144)
[2018-06-26 11:12] LABS: POTASSIUM 5.2 mmol/L (3.5-5.1)
[2018-06-26] MEDS: SENNA TAB PO (21:45)
[2018-06-26] MEDS: BIMATOPROST 0.01% BOTH EYES (21:51)
[2018-06-26] MEDS: OPTH BOTH EYES (21:51)
[2018-06-27] MEDS: PANTOPRAZOLE (EC) 40 MG TAB PO (06:44)
[2018-06-27] MEDS: ALBUTEROL/IPRATROPIUM (NEB) 3 ML AMP HHN ×2 (08:59→16:09)
[2018-06-27] MEDS: LATANOPROST 0.005% 2.5 ML OPH BOTH EYES (09:00)
[2018-06-27] MEDS: BRIMONIDINE 0.2%-TIMOLOL 0.5% 5ML OPH BOTH EYES (09:26)
[2018-06-27] MEDS: FUROSEMIDE 40 MG TAB PO (09:27)
[2018-06-27] MEDS: GABAPENTIN 100 MG CAP PO ×3 (09:27→21:24)
[2018-06-27] MEDS: ACETAMINOPHEN 500 MG TAB PO ×2 (09:27→14:56)
[2018-06-27] MEDS: DOCUSATE SODIUM 100 MG CAP PO ×2 (09:29→21:20)
[2018-06-27] MEDS: BACLOFEN 10 MG TAB PO ×2 (09:29→21:20)
[2018-06-27] MEDS: FOLIC ACID 1 MG TAB PO (09:29)
[2018-06-27] MEDS: METOPROLOL 25 MG TAB PO ×2 (09:29→21:24)
[2018-06-27] MEDS: LIDOCAINE 5% PATCH TD (09:34)
[2018-06-27] MEDS: ENOXAPARIN 30 MG/0.3 ML SYG SC (09:34)
[2018-06-27] MEDS: BALSAM PERU/CASTOR OIL 60 GM TUBE TOP ×2 (09:36→21:27)
[2018-06-27] MEDS: DICLOFENAC SODIUM 1% GEL 100 GM TUBE TP ×4 (09:39→21:27)
[2018-06-27] MEDS: SENNA TAB PO (21:00)
[2018-06-27] MEDS: BIMATOPROST 0.01% BOTH EYES (21:20)
[2018-06-27] MEDS: OPTH BOTH EYES (21:20)
[2018-06-28] MEDS: PANTOPRAZOLE (EC) 40 MG TAB PO (06:28)
[2018-06-28] MEDS: ENOXAPARIN 30 MG/0.3 ML SYG SC (08:18)
[2018-06-28] MEDS: LIDOCAINE 5% PATCH TD (08:18)
[2018-06-28] MEDS: GABAPENTIN 100 MG CAP PO ×3 (08:20→21:36)
[2018-06-28] MEDS: FUROSEMIDE 40 MG TAB PO (08:20)
[2018-06-28] MEDS: DOCUSATE SODIUM 100 MG CAP PO ×2 (08:20→21:36)
[2018-06-28] MEDS: LATANOPROST 0.005% 2.5 ML OPH BOTH EYES (08:20)
[2018-06-28] MEDS: BRIMONIDINE 0.2%-TIMOLOL 0.5% 5ML OPH BOTH EYES (08:21)
[2018-06-28] MEDS: FOLIC ACID 1 MG TAB PO (08:21)
[2018-06-28] MEDS: DICLOFENAC SODIUM 1% GEL 100 GM TUBE TP ×4 (08:22→21:35)
[2018-06-28] MEDS: METOPROLOL 25 MG TAB PO ×2 (08:22→21:46)
[2018-06-28] MEDS: BALSAM PERU/CASTOR OIL 60 GM TUBE TOP ×2 (08:22→21:36)
[2018-06-28] MEDS: BACLOFEN 10 MG TAB PO ×2 (08:26→21:36)
[2018-06-28 08:54] LABS: ANION GAP 10 (8-16); BLOOD UREA NITROGEN 21 mg/dl (7-20); CALCIUM 9.9 mg/dl (8.4-10.2); CARBON DIOXIDE 34 mmol/L (21-31); CHLORIDE 101 mmol/L (97-110); CREATININE 0.88 mg/dl (0.44-1.00); GLUCOSE 103 mg/dl (70-220); MAGNESIUM 1.8 mg/dl (1.7-2.5); POTASSIUM 4.8 mmol/L (3.5-5.1); SODIUM 140 mmol/L (135-144)
[2018-06-28] MEDS: ALBUTEROL/IPRATROPIUM (NEB) 3 ML AMP HHN ×2 (09:17→16:25)
[2018-06-28] MEDS: ACETAMINOPHEN 500 MG TAB PO ×2 (12:31→21:36)
[2018-06-28 20:00] LABS: ADD MAN DIFF? NO
[2018-06-28 20:03] LABS: BASOPHIL # 0.1 10^3/ul (0.0-0.1); BASOPHILS % 1.1 % (0.0-2.0); EOSINOPHILS # 0.2 10^3/ul (0.0-0.5); EOSINOPHILS % 2.6 % (0.0-7.0); HEMATOCRIT 36.6 % (37.0-47.0); HEMOGLOBIN 11.2 g/dl (12.0-16.0); LYMPHOCYTES # 1.1 10^3/ul (0.8-2.9); LYMPHOCYTES % 16.3 % (15.0-51.0); MEAN CORPUSCULAR HEMOGLOBIN 28.4 pg (29.0-33.0); MEAN CORPUSCULAR HGB CONC 30.6 g/dl (32.0-37.0); MEAN CORPUSCULAR VOLUME 92.7 fl (82.0-101.0); MEAN PLATELET VOLUME 11.1 fl (7.4-10.4); MONOCYTE # 0.8 10^3/ul (0.3-0.9); MONOCYTES % 12.4 % (0.0-11.0); NEUTROPHIL # 4.3 10^3/ul (1.6-7.5); NEUTROPHILS % 66.7 % (39.0-77.0); PLATELET COUNT 405 10^3/UL (140-415); RED BLOOD COUNT 3.95 10^6/ul (4.20-5.40); RED CELL DISTRIBUTION WIDTH 16.5 % (11.5-14.5)
[2018-06-28 20:03] LABS: WHITE BLOOD COUNT 6.4 10^3/ul (4.8-10.8)
[2018-06-28 20:25] LABS: ALANINE AMINOTRANSFERASE 12 IU/L (13-69); ALBUMIN 3.6 g/dl (3.3-4.9); ALBUMIN/GLOBULIN RATIO 1.02; ALKALINE PHOSPHATASE 74 IU/L (42-121); ANION GAP 13 (8-16); ASPARTATE AMINO TRANSFERASE 28 IU/L (15-46); BILIRUBIN,INDIRECT 0.2 mg/dl (0-1.1); BILIRUBIN,TOTAL 0.2 mg/dl (0.2-1.3); BLOOD UREA NITROGEN 25 mg/dl (7-20); CALCIUM 9.9 mg/dl (8.4-10.2); CARBON DIOXIDE 32 mmol/L (21-31); CHLORIDE 101 mmol/L (97-110); GLUCOSE 103 mg/dl (70-220); POTASSIUM 4.5 mmol/L (3.5-5.1); SODIUM 141 mmol/L (135-144); TOTAL PROTEIN 7.1 g/dl (6.1-8.1)
[2018-06-28] MEDS: DOXYCYCLINE 100 MG TAB PO ×2 (21:00→21:36)
[2018-06-28] MEDS: SENNA TAB PO (21:36)
[2018-06-28] MEDS: OPTH BOTH EYES (21:46)
[2018-06-28] MEDS: BIMATOPROST 0.01% BOTH EYES (21:46)
[2018-06-29] MEDS: PANTOPRAZOLE (EC) 40 MG TAB PO (06:05)
[2018-06-29] MEDS: ALBUTEROL/IPRATROPIUM (NEB) 3 ML AMP HHN ×2 (08:13→16:00)
[2018-06-29] MEDS: METOPROLOL 25 MG TAB PO ×2 (09:00→20:37)
[2018-06-29] MEDS: DICLOFENAC SODIUM 1% GEL 100 GM TUBE TP ×4 (09:10→20:40)
[2018-06-29] MEDS: BALSAM PERU/CASTOR OIL 60 GM TUBE TOP ×3 (09:12→21:00)
[2018-06-29] MEDS: LIDOCAINE 5% PATCH TD (09:13)
[2018-06-29] MEDS: LATANOPROST 0.005% 2.5 ML OPH BOTH EYES (09:14)
[2018-06-29] MEDS: ENOXAPARIN 30 MG/0.3 ML SYG SC (09:15)
[2018-06-29] MEDS: BRIMONIDINE 0.2%-TIMOLOL 0.5% 5ML OPH BOTH EYES (09:15)
[2018-06-29] MEDS: GABAPENTIN 100 MG CAP PO ×2 (09:16→20:34)
[2018-06-29] MEDS: DOCUSATE SODIUM 100 MG CAP PO ×2 (09:16→20:34)
[2018-06-29] MEDS: BACLOFEN 10 MG TAB PO ×2 (09:16→20:35)
[2018-06-29] MEDS: FOLIC ACID 1 MG TAB PO (09:16)
[2018-06-29] MEDS: DOXYCYCLINE 100 MG TAB PO ×2 (09:16→21:40)
[2018-06-29] MEDS: FUROSEMIDE 40 MG TAB PO (09:17)
[2018-06-29] MEDS: OPTH BOTH EYES (20:34)
[2018-06-29] MEDS: BIMATOPROST 0.01% BOTH EYES (20:34)
[2018-06-29] MEDS: SENNA TAB PO (20:49)
[2018-06-29] MEDS: ACETAMINOPHEN 500 MG TAB PO (21:40)
[2018-06-30] MEDS: PANTOPRAZOLE (EC) 40 MG TAB PO (05:58)
[2018-06-30] MEDS: ALBUTEROL/IPRATROPIUM (NEB) 3 ML AMP HHN ×2 (08:35→16:00)
[2018-06-30] MEDS: LATANOPROST 0.005% 2.5 ML OPH BOTH EYES (09:00)
[2018-06-30] MEDS: FUROSEMIDE 40 MG TAB PO ×2 (09:00→09:05)
[2018-06-30] MEDS: DOXYCYCLINE 100 MG TAB PO ×2 (09:03→20:56)
[2018-06-30] MEDS: BACLOFEN 10 MG TAB PO ×2 (09:04→20:56)
[2018-06-30] MEDS: DOCUSATE SODIUM 100 MG CAP PO ×2 (09:05→20:56)
[2018-06-30] MEDS: GABAPENTIN 100 MG CAP PO ×2 (09:05→20:56)
[2018-06-30] MEDS: FOLIC ACID 1 MG TAB PO (09:05)
[2018-06-30] MEDS: LIDOCAINE 5% PATCH TD (09:06)
[2018-06-30] MEDS: METOPROLOL 25 MG TAB PO ×2 (09:06→20:57)
[2018-06-30] MEDS: ACETAMINOPHEN 500 MG TAB PO (09:06)
[2018-06-30] MEDS: ENOXAPARIN 30 MG/0.3 ML SYG SC (09:07)
[2018-06-30] MEDS: BALSAM PERU/CASTOR OIL 60 GM TUBE TOP ×2 (09:07→20:59)
[2018-06-30] MEDS: DICLOFENAC SODIUM 1% GEL 100 GM TUBE TP ×4 (09:08→20:59)
[2018-06-30] MEDS: BRIMONIDINE 0.2%-TIMOLOL 0.5% 5ML OPH BOTH EYES (09:08)
[2018-06-30 17:53] LABS: WHITE BLOOD COUNT 7.2 10^3/ul (4.8-10.8)
[2018-06-30 17:53] LABS: HEMATOCRIT 37.5 % (37.0-47.0); HEMOGLOBIN 11.3 g/dl (12.0-16.0); MEAN CORPUSCULAR HEMOGLOBIN 27.4 pg (29.0-33.0); MEAN CORPUSCULAR HGB CONC 30.1 g/dl (32.0-37.0); MEAN PLATELET VOLUME 10.4 fl (7.4-10.4); PLATELET COUNT 335 10^3/UL (140-415); RED BLOOD COUNT 4.12 10^6/ul (4.20-5.40); RED CELL DISTRIBUTION WIDTH 16.6 % (11.5-14.5)
[2018-06-30 17:56] LABS: ADD MAN DIFF? YES
[2018-06-30 18:15] LABS: IRON 20 ug/dl (35-150)
[2018-06-30 18:15] LABS: LACTIC ACID 1.1 mmol/L (0.5-2.0)
[2018-06-30 18:17] LABS: ALANINE AMINOTRANSFERASE 17 IU/L (13-69); ALBUMIN 3.5 g/dl (3.3-4.9); ALBUMIN/GLOBULIN RATIO 0.97; ALKALINE PHOSPHATASE 74 IU/L (42-121); ANION GAP 10 (8-16); ASPARTATE AMINO TRANSFERASE 21 IU/L (15-46); BILIRUBIN,INDIRECT 0.3 mg/dl (0-1.1); BILIRUBIN,TOTAL 0.3 mg/dl (0.2-1.3); BLOOD UREA NITROGEN 23 mg/dl (7-20); CALCIUM 9.7 mg/dl (8.4-10.2); CARBON DIOXIDE 33 mmol/L (21-31); CHLORIDE 101 mmol/L (97-110); CREATININE 0.94 mg/dl (0.44-1.00); GLUCOSE 112 mg/dl (70-220); MAGNESIUM 1.6 mg/dl (1.7-2.5); POTASSIUM 4.1 mmol/L (3.5-5.1); SODIUM 140 mmol/L (135-144); TOTAL PROTEIN 7.1 g/dl (6.1-8.1)
[2018-06-30 18:24] LABS: % IRON SATURATION 8 % SAT (22-52); TOTAL IRON BINDING CAPACITY 243 ug/dl (241-421)
[2018-06-30 19:09] LABS: ERYTHROCYTE SEDIMENTATION RATE 40 mm/Hr (0-30)
[2018-06-30 19:25] LABS: EOSINOPHILS % (M) 1 % (0-7); LYMPHOCYTES #M 0.2 10^3/ul (0.8-2.9); LYMPHOCYTES % (M) 4 % (15-51); MONOCYTE #M 0.7 10^3/ul (0.3-0.9); MONOCYTES % (M) 10 % (0-11); MYELOCYTES % (M) 1 % (0-0); PLATELET ESTIMATE NORMAL; SEGMENTED NEUTROPHILS (M) % 84 % (39-77); SMUDGE%M 4 % (0-0)
[2018-06-30] MEDS: SENNA TAB PO (20:56)
[2018-06-30] MEDS: BIMATOPROST 0.01% BOTH EYES (20:59)
[2018-06-30] MEDS: OPTH BOTH EYES (20:59)
[2018-07-01] MEDS: ACETAMINOPHEN 500 MG TAB PO (06:27)
[2018-07-01] MEDS: PANTOPRAZOLE (EC) 40 MG TAB PO (06:27)
[2018-07-01] MEDS: ALBUTEROL/IPRATROPIUM (NEB) 3 ML AMP HHN ×2 (08:00→16:00)
[2018-07-01] MEDS: LATANOPROST 0.005% 2.5 ML OPH BOTH EYES (09:00)
[2018-07-01] MEDS: ENOXAPARIN 30 MG/0.3 ML SYG SC (09:07)
[2018-07-01] MEDS: LIDOCAINE 5% PATCH TD (09:07)
[2018-07-01] MEDS: GABAPENTIN 100 MG CAP PO ×2 (09:08→21:42)
[2018-07-01] MEDS: METOPROLOL 25 MG TAB PO ×2 (09:08→21:41)
[2018-07-01] MEDS: BRIMONIDINE 0.2%-TIMOLOL 0.5% 5ML OPH BOTH EYES (09:08)
[2018-07-01] MEDS: BACLOFEN 10 MG TAB PO ×2 (09:09→21:42)
[2018-07-01] MEDS: FOLIC ACID 1 MG TAB PO (09:09)
[2018-07-01] MEDS: FUROSEMIDE 40 MG TAB PO (09:09)
[2018-07-01] MEDS: DOCUSATE SODIUM 100 MG CAP PO ×2 (09:09→21:41)
[2018-07-01] MEDS: DOXYCYCLINE 100 MG TAB PO ×2 (09:12→21:41)
[2018-07-01] MEDS: BALSAM PERU/CASTOR OIL 60 GM TUBE TOP ×2 (09:13→21:43)
[2018-07-01] MEDS: DICLOFENAC SODIUM 1% GEL 100 GM TUBE TP ×4 (09:13→21:43)
[2018-07-01] MEDS: TRIMETHOPRIM/SULFAMETHOX (DS) TAB PO (12:36)
[2018-07-01] MEDS: MAGNESIUM SULFATE 2 GM/50 ML 50 ML IVPB (13:13)
[2018-07-01] MEDS: SOD FERRIC GLUC COMPLX 125 MG in SOD CHLORIDE 0.9% 100 ML IVPB (16:04)
[2018-07-01] MEDS: BETAMET NA PHOS/AC(6 MG/ML) 5ML INJ INJ (20:17)
[2018-07-01] MEDS: BUPIVACAINE 0.5%/EPI (SDV) 30 ML INJ INJ (20:17)
[2018-07-01] MEDS: SENNA TAB PO ×2 (21:00→21:42)
[2018-07-01] MEDS: BIMATOPROST 0.01% BOTH EYES (21:40)
[2018-07-01] MEDS: OPTH BOTH EYES (21:40)
[2018-07-02] MEDS: PANTOPRAZOLE (EC) 40 MG TAB PO (05:31)
[2018-07-02] MEDS: ALBUTEROL/IPRATROPIUM (NEB) 3 ML AMP HHN ×2 (08:00→16:00)
[2018-07-02] MEDS: ENOXAPARIN 30 MG/0.3 ML SYG SC (08:40)
[2018-07-02] MEDS: BACLOFEN 10 MG TAB PO (08:41)
[2018-07-02] MEDS: DOXYCYCLINE 100 MG TAB PO (08:41)
[2018-07-02] MEDS: FOLIC ACID 1 MG TAB PO (08:41)
[2018-07-02] MEDS: DOCUSATE SODIUM 100 MG CAP PO (08:41)
[2018-07-02] MEDS: LIDOCAINE 5% PATCH TD (08:41)
[2018-07-02] MEDS: FUROSEMIDE 40 MG TAB PO (08:41)
[2018-07-02] MEDS: TRIMETHOPRIM/SULFAMETHOX (DS) TAB PO (08:41)
[2018-07-02] MEDS: GABAPENTIN 100 MG CAP PO (08:42)
[2018-07-02] MEDS: HYDROCODONE/APAP (5/325) TAB PO (08:42)
[2018-07-02] MEDS: METOPROLOL 25 MG TAB PO (08:44)
[2018-07-02] MEDS: LATANOPROST 0.005% 2.5 ML OPH BOTH EYES ×2 (09:00→11:30)
[2018-07-02] MEDS: MAGNESIUM SULFATE 2 GM/50 ML 50 ML IVPB (10:55)
[2018-07-02] MEDS: BALSAM PERU/CASTOR OIL 60 GM TUBE TOP (10:56)
[2018-07-02] MEDS: DICLOFENAC SODIUM 1% GEL 100 GM TUBE TP ×3 (10:57→17:00)
[2018-07-02] MEDS: BRIMONIDINE 0.2%-TIMOLOL 0.5% 5ML OPH BOTH EYES (13:57)
[2018-07-02] MEDS: SOD FERRIC GLUC COMPLX 125 MG in SOD CHLORIDE 0.9% 100 ML IVPB (15:51)
== END 2018-07-02 20:30 | disposition home health service (06) | DRG 560 ==
LOC: VRC 22:53
PROC: F07Z5ZZ Bed Mobility Treatment (ICD-10-PCS; principal; 2018-06-13)
PROC: F08Z2ZZ Grooming/Personal Hygiene Treatment (ICD-10-PCS; 2018-06-13)
DX: Z47.1 Aftercare following joint replacement surgery (principal); N39.0 Urinary tract infection, site not specified; S72.002D Fracture of unspecified part of neck of left femur, subsequent encounter for closed fracture with routine healing; S09.90XD Unspecified injury of head, subsequent encounter; S02.2XXD Fracture of nasal bones, subsequent encounter for fracture with routine healing; S01.81XD Laceration without foreign body of other part of head, subsequent encounter; Z96.642 Presence of left artificial hip joint; M54.5 Low back pain; I10 Essential (primary) hypertension; M17.11 Unilateral primary osteoarthritis, right knee; Z96.651 Presence of right artificial knee joint; I25.10 Atherosclerotic heart disease of native coronary artery without angina pectoris; E78.5 Hyperlipidemia, unspecified; K21.9 Gastro-esophageal reflux disease without esophagitis; D64.9 Anemia, unspecified; F32.9 Major depressive disorder, single episode, unspecified; M40.209 Unspecified kyphosis, site unspecified; H91.90 Unspecified hearing loss, unspecified ear; K59.09 Other constipation; W18.30XD Fall on same level, unspecified, subsequent encounter; I35.0 Nonrheumatic aortic (valve) stenosis; F06.31 Mood disorder due to known physiological condition with depressive features
CPT/HCPCS: 71045; 73560; 80048; 80053; 81001; 82962; 83540; 83605; 83735; 84443; 85025; 85651; 87040; 87081; 87086; 93005; 93970; 94640; 97110; 97112; 97116; 97150; 97163; 97530; 97535; 97542

== ENCOUNTER 2019-02-24 16:33 | Emergency (ER) | payer MEDICARE, OTHER | END 2019-02-24 20:38 | disposition home or self-care (01) | LOC: FTE 16:33 | DX: S22.42XA Multiple fractures of ribs, left side, initial encounter for closed fracture (principal); I10 Essential (primary) hypertension; W01.0XXA Fall on same level from slipping, tripping and stumbling without subsequent striking against object, initial encounter; Y92.007 Garden or yard of unspecified non-institutional (private) residence as the place of occurrence of the external cause | CPT/HCPCS: 71100; 99283-25 ==